=== PATIENT | female | born 1945 | race Caucasian/White ===

== ENCOUNTER 2019-07-19 18:34 | Emergency (ER) | payer MEDICARE, SELFPAY ==
[2019-07-19 19:04] VITALS: BP 140/72; PULSE 104; RESP 20; TEMP 36.4; O2SAT 99
--- NOTE | 2019-07-19 19:43 | ED.FEMALEGU ---
HPI - Female Genitourinary General Chief complaint: Urogenital-Female Stated complaint: Possible Uti Time Seen by Provider: 07/19/19 19:45 Source: patient, family and RN notes reviewed Mode of arrival: ambulatory Limitations: no limitations History of Present Illness HPI Narrative: 73-year-old female who [facility] accompanied by daughter with complaints of increasing back pain over the past 2 days with urinary urgency and daughter states that she noted mother's urine to be dark and blood noted blood on tissue when she wiped yesterday. Patient has had CVA in 2000 and uses cane to assist with ambulation and reported has some memory difficulty. Daughter states that she has not noted her mother to have any fevers, nausea or vomiting, or any abdominal pain. Patient oes have past history of kidney stone in the past which she passed on her own not requiring any surgical intervention. MD elicited complaint: dysuria and back pain Pertinent past history: diabetes and other (kidney stone) Onset (ago): day(s) (2) Location of symptoms: other (lower back) Severity: moderate Vaginal discharge: none Vaginal bleeding: none Urinary symptoms: Urgency (dark urine) and Hematuria (noted to tissue) Exacerbating factors: urination Relieving factors: none Associated symptoms: back pain Treatment prior to arrival: none Sexual activity: No Patient : No Possible : postmenopausal Related Data Home Medications Medication Instructions Recorded Confirmed Magnesium (oxide/AA chelate) 07/19/19 amlodipine 10 mg PO DAILY 07/19/19 07/19/19 aspirin [Aspir-81] 81 mg PO DAILY 07/19/19 07/19/19 clopidogrel [Plavix] 75 mg PO DAILY 07/19/19 07/19/19 gabapentin 600 mg PO TID 07/19/19 07/19/19 lovastatin 40 mg PO DAILY 07/19/19 07/19/19 metformin 500 mg PO DAILY 07/19/19 07/19/19 Allergies Allergy/AdvReac Type Severity Reaction Status Date / Time codeine Allergy Unknown RASH - Verified 07/19/19 19:05 TYLENOL #4 Review of Systems Review of Systems: Narrative: CONSTITUTIONAL: Denies fever, chills, or sweats. EYES: Denies visual changes, redness, or discharge. ENT: Denies rhinorrhea, congestion, sore throat, or otalgia. CARDIOVASCULAR: Denies chest pain, palpitations, or edema. RESPIRATORY: Denies cough or dyspnea. GASTROINTESTINAL: Denies abdominal pain, nausea, vomiting, or diarrhea. GENITOURINARY:positive dysuria and hematuria. SKIN: Denies rash or itching. MUSCULOSKELETAL:positive for lower back pain increase the past 2 days, no joint pain, or myalgia. NEUROLOGIC: Denies headache, numbness, or weakness. PSYCHIATRIC: Denies anxiety or depression. All systems reviewed & are unremarkable except as noted in HPI and below PMFSH Past Medical History Medical History (Updated 07/23/19 @ 15:09 by Era Velazquez NP) Arthritis CVA (cerebral vascular accident) Diabetes Hyperlipidemia Hypertension Kidney stones Surgical History Surgical History (Updated 07/23/19 @ 15:08 by Era Velazquez NP) Hx of cataract surgery Previous back surgery S/P foot surgery, right Social History Social History (Updated 07/23/19 @ 15:09 by Era Velazquez NP) Smoking status: Unknown if ever smoked Living arrangements: with family Occupation/Education: retired Gender identity (if verbalized by the patient): Female Comments At time of signature, agree with nursing past medical, surgical, social and family history. There is no relevant family history pertinent to the presenting complaint Exam Narrative: Exam Narrative: GENERAL: Well-appearing, well-nourished, and in no acute distress. HEAD: Normocephalic, atraumatic. EYES: PERRLA and EOMI. ENT: Nares clear, no rhinorrhea or epistaxis. Mucous membranes moist. NECK: Supple.no lymphadenopathy CHEST: Clear to auscultation. No respiratory distress.SAO2 99% on room air HEART: Regular rate and rhythm. No murmur heard. Normal peripheral pulses. ABDOMEN: Soft, nontender on palpat
== END 2019-07-19 20:03 | disposition home or self-care (01) ==
PROVIDERS: Emergency Provider Registered Nurse
DX: N39.0 Urinary tract infection, site not specified (principal); M19.90 Unspecified osteoarthritis, unspecified site; Z86.73 Personal history of transient ischemic attack (TIA), and cerebral infarction without residual deficits; E11.9 Type 2 diabetes mellitus without complications; E78.5 Hyperlipidemia, unspecified; I10 Essential (primary) hypertension
CPT/HCPCS: 81003; 87086; 87088; 99213; G0463

== ENCOUNTER 2022-10-28 10:56 | Emergency (ER) | payer MEDICARE, MEDICAID, SELFPAY ==
--- NOTE | ~2022-10-28 | XR_ITS ---
EXAMINATION: XR shoulder LT min 2V DATE: 10/28/2022 11:40 INDICATION: Left shoulder pain. Fall. TECHNIQUE: 4 views of left shoulder were obtained. COMPARISON: None. FINDINGS: There is a fracture of distal left clavicle in near-anatomic alignment. There is moderate o steoarthritis of acromioclavicular joint and mild osteoarthritis of acromioclavicular joint. There ar e old healed left rib fractures. IMPRESSION: 1. Fracture of distal left clavicle. 2. Polyarticular osteoarthritis. Reviewed, dictated and finalized at location A.
--- NOTE | 2022-10-28 11:09 | ED.UPPEXIN ---
HPI - Extremity Injury (Upper) General Chief Complaint: Extremity Injury, Upper Stated Complaint: Fall Injury/Left Shoulder Time Seen by Provider: 10/28/22 11:15 Source: patient, RN notes reviewed and old records reviewed Mode of arrival: ambulatory Limitations: no limitations History of Present Illness HPI narrative: 77-year-old female presents to the [facility] with complaints of decreased range of motion, bruising to the top of left shoulder. Patient reports that she fell Tuesday night. Patient states that she was using her walker when it slipped and she landed on her shoulder. Remembers the entire event. Has no back pain, neck pain. No scalp or head tenderness. Pain just to the top of the left shoulder Patient is not short of medical history, poor historian Family member with her not sure past medical history but no she is on blood thinners Fall was unwitnessed Onset (ago): day(s) (5) Treatments prior to arrival: other (Tylenol) Related Data Home Medications Medication Instructions Recorded Confirmed alendronate 70 mg tablet (Fosamax) 70 mg PO WEEKLY 10/28/22 10/28/22 aspirin 81 mg capsule 81 mg PO DAILY 10/28/22 10/28/22 clopidogrel 75 mg tablet 75 mg PO DAILY 10/28/22 10/28/22 ergocalciferol (vitamin D2) 1,250 See Rx Instructions .Route .COMPLEX 10/28/22 10/28/22 mcg (50,000 unit) capsule (Vitamin D2) gabapentin 600 mg tablet 600 mg PO TID 10/28/22 10/28/22 levetiracetam 250 mg tablet 250 mg PO BID 10/28/22 10/28/22 losartan 50 mg tablet 50 mg PO DAILY 10/28/22 10/28/22 lovastatin 40 mg tablet 40 mg PO DAILY 10/28/22 10/28/22 magnesium oxide 400 mg PO DAILY 10/28/22 10/28/22 nifedipine 60 mg tablet,extended 600 mg PO DAILY 10/28/22 10/28/22 release 24 hr nitrofurantoin 100 mg PO Q12H 10/28/22 10/28/22 monohydrate/macrocrystals 100 mg capsule (Macrobid) potassium chloride 10 mEq See Rx Instructions .Route .COMPLEX 10/28/22 10/28/22 capsule,extended release vitamin B12 0.5 mg-folic acid 1 mg See Rx Instructions .Route .COMPLEX 10/28/22 10/28/22 tablet Allergies Allergy/AdvReac Type Severity Reaction Status Date / Time codeine Allergy Unknown RASH - Verified 07/19/19 19:05 TYLENOL #4 ibuprofen Allergy Unknown Verified 10/28/22 11:24 Review of Systems Review of Systems: All systems reviewed & are unremarkable except as noted in HPI and below Constitutional: Constitutional: Reports no additional constitutional complaints Eyes: Eyes: Reports no additional eye complaints ENT: Reports system reviewed and no additional complaints, except as documented Cardiovascular: Cardiovascular: Reports no additional cardiovascular complaints, Denies chest pain and Denies dyspnea Respiratory: Respiratory: Reports no additional respiratory complaints, Denies chest congestion, Denies cough and Denies dyspnea Gastrointestinal: Gastrointestinal: Reports no additional gastrointestinal complaints, Denies abdominal pain, Denies nausea and Denies vomiting Musculoskeletal: Musculoskeletal: Reports as per HPI Integumentary/Breasts: Skin/Breast: Reports system reviewed and no additional complaints, except as docu Neurologic: Reports system reviewed and no additional complaints, except as documented Psychiatric: Psychiatric: Reports no additional psychiatric complaints Allergic/Immunologic: Allergic/Immunologic: Reports no additional allergic/immunologic complaints [facility] Past Medical History Medical History Arthritis CVA (cerebral vascular accident) Diabetes Hyperlipidemia Hypertension Kidney stones Surgical History Surgical History Hx of cataract surgery Previous back surgery S/P foot surgery, right Social History Social History Smoking status: Unknown if ever smoked Living arrangements: with family Occupation/Education: retired
[2022-10-28 11:13] VITALS: BP 138/74; PULSE 96; RESP 18; TEMP 36.3; O2SAT 100
== END 2022-10-28 12:15 | disposition home or self-care (01) ==
PROVIDERS: Emergency Provider Nurse Practitioner
DX: S42.035A Nondisplaced fracture of lateral end of left clavicle, initial encounter for closed fracture (principal); W19.XXXA Unspecified fall, initial encounter; M15.9 Polyosteoarthritis, unspecified; E11.9 Type 2 diabetes mellitus without complications; E78.5 Hyperlipidemia, unspecified; I10 Essential (primary) hypertension; Z86.73 Personal history of transient ischemic attack (TIA), and cerebral infarction without residual deficits; Z79.82 Long term (current) use of aspirin
CPT/HCPCS: 73030; 99204; A4565; G0463